=== PATIENT | female | born 1960 | race Caucasian/White ===

== ENCOUNTER 2017-04-22 07:53 | Day surgery (SDC) | payer BC ==
[~2017-04-22 07:53] MED LIST: Famotidine IV* 10 MG/ML 2 ML (20 mg) IV ONE; Metoclopramide TAB* 10 MG PO ONE
[2017-04-22] MEDS ORDERED: Famotidine IV* 10 MG/ML 2 ML (20 mg) ONE (08:07)
[2017-04-22] MEDS ORDERED: Buffered Lidocaine 0.9% SYRIN* 5 ML/SYR SYRINGE ONE (08:08)
[2017-04-22] MEDS ORDERED: cefTRIAXone(*) 2 GM ADDV.VIAL IVPB ONE (08:08)
[2017-04-22] MEDS ORDERED: Metoclopramide TAB* 10 MG ONE (08:08)
[2017-04-22] MEDS ORDERED: Dexamethasone IV* 4 MG/ML 1 ML (4 MG) ONE (08:44)
[2017-04-22] MEDS ORDERED: Ketorolac INJ* 30 MG/ML 1 ML VIAL ONE (08:44)
[2017-04-22] MEDS ORDERED: Ondansetron INJ* 2 MG/ML VIAL ONE (08:44)
[2017-04-22] MEDS ORDERED: Lidocaine 2% PF * 5 ML VIAL ONE (08:44)
[2017-04-22] MEDS ORDERED: Propofol* 10 MG/ML 20 ML BTL IV PUSH ONE (08:44)
[2017-04-22] MEDS ORDERED: fentaNYL* 50 MCG/ML 2 ML VIAL (100 MCG VIAL) ONE ×2 (08:44→10:41)
[2017-04-22] MEDS ORDERED: KETAMINE HCL* 50 MG/ML 10 ML VIAL ONE (08:45)
[2017-04-22] MEDS ORDERED: Midazolam* 1 MG/ML 5 ML VIAL (5 MG) ONE (08:45)
[2017-04-22] MEDS ORDERED: Iohexol 180 (CONTRAST) 10 ML SDV IV ONE (09:02)
[2017-04-22] MEDS ORDERED: Phenylephrine INJ* 10 MG/ML 1 ML VIAL (10 MG) ONE (09:44)
[2017-04-22] MEDS ORDERED: oxyCODONE/Acetamin 5/325 MG* TAB PO PRN (10:01)
[2017-04-22] MEDS ORDERED: Ondansetron INJ* 2 MG/ML VIAL IV PRN (10:01)
[2017-04-22] MEDS ORDERED: fentaNYL* 50 MCG/ML 2 ML VIAL (100 MCG VIAL) IV PRN (10:01)
--- NOTE | 2017-04-22 11:40 | RAD ---
INDICATION: Left ureteral stent placement COMPARISONS: April 07, 2017 TECHNIQUE: Fluoroscopy was provided for a retrograde pyelogram and stent placement. Total fluoroscopy time is: 18 seconds FINDINGS: Contrast is noted within the dilated left renal collecting system. A ureteral stent is noted. IMPRESSION: FLUOROSCOPY WAS PROVIDED FOR A RETROGRADE PYELOGRAM AND STENT PLACEMENT CPT II Codes: 6045F
[2017-04-22] MEDS ORDERED: Solifenacin(NF) 5 MG TAB PO ONE (12:00)
[2017-04-22] MEDS ORDERED: Solifenacin(NF) 10 MG TAB PO ONE (12:00)
[2017-04-22] MEDS ORDERED: Furosemide IV* 10 MG/ML 2 ML VIAL (20 MG) ONE (12:16)
[2017-04-22 13:10] VITALS: BP 169/77
--- NOTE | 2017-04-22 16:29 | OP ---
CC: Dr. Ashley Sainz; Linda Schultz MD; Luke Randhawa MD * DATE OF OPERATION: 04/22/17 - [facility] DATE OF : 56 SURGEON: Luke Randhawa MD. ANESTHESIOLOGIST: Dr. Hendricks. ANESTHESIA: General. PRE-OP DIAGNOSES: 1. Left hydronephrosis. 2. Calculus, left ureter. POST-OP DIAGNOSES: 1. Left hydronephrosis. 2. Calculus, left ureter. OPERATIVE PROCEDURE: 1. Cystoscopy, left stent removal, left retrograde pyelogram, left ureteroscopy , laser lithotripsy and removal of calculus fragments. 2. Left pyeloscopy. 3. Left stent insertion. COMPLICATIONS: None. STENT USED: An 8.5-Tanzanian 28 cm silicone stent, left ureter. POSTOPERATIVE CONDITION: Stable. OPERATIVE FINDINGS: 1. Left hydronephrosis and proximal hydroureter. 2. Fairly large calculus impacted in left [id number] ureter with extensive surrounding inflammatory response. INDICATIONS: Yissel Calvert is a 56-year-old lady who had been evaluated for a large obstructing calculus in the left ureter. She had previously undergone left ureteroscopy at which time I had noted that the calculus seemed to be somewhat embedded within the wall of the left ureter. This was partially fragmented last time and a left stent was placed. She is now being brought in for a more definitive attempt at breaking up and removing all the stone fragments. DESCRIPTION OF PROCEDURE: After induction of general anesthesia, the patient was placed in dorsal lithotomy position. Sequential compression devices were in place and functioning. Initial cystoscopy revealed a normal-appearing bladder. The left stent was removed. A left retrograde pyelogram revealed left hydronephrosis and proximal hydroureter. A 6-Tanzanian semirigid ureteroscope was introduced and advanced into the distal left ureter several centimeters above the ureterovesical junction. A fairly large calculus was noted to be impacted on the medial aspect of the left ureter at the junction of the [id number] left ureter. There was considerable surrounding inflammatory response. Because the calculus was embedded within the pole of the ureter, I had to be very careful with the laser lithotripsy which was done using a 550 micron Holmium laser. Different parts of the calculus were carefully fragmented with the laser in an effort to avoid any injury to the ureter and this was done successfully. All of the fragments were individually removed using a 3-pronged grasper, and were retrieved into the bladder from where they were later removed and sent for analysis. At the end of the procedure, there was no sizeable remaining calculus fragment and there was no evidence of ureteral perforation, although there was considerable inflammatory response where the calculus had been embedded. The ureteroscope was carefully advanced into the proximal ureter and then bend into the renal pelvis to make sure there were no sizeable fragments that had migrated proximally and none were seen. An 8.5 Tanzanian 28 cm silicone stent was introduced and positioned under fluoroscopy with good proximal and distal positioning obtained. The patient is certainly at higher risk for ureteral stricture, given the fact that the calculus had been embedded into the ureter and my plan is to leave the stent in for a minimum of 3 weeks and then she will require close followup monitoring after stent removal to monitor for development of any stricture. The patient tolerated the procedure satisfactorily and was transferred back to the recovery area in stable condition. [id number]/CPS #: [id number] AMAURI
== END 2017-04-22 13:25 | disposition home or self-care (01) ==
LOC: OR 07:53
PROVIDERS: ATTEND Urology
DX: N13.2 Hydronephrosis with renal and ureteral calculous obstruction (principal); I10 Essential (primary) hypertension; Z85.3 Personal history of malignant neoplasm of breast; E78.00 Pure hypercholesterolemia, unspecified; Z87.891 Personal history of nicotine dependence
CPT/HCPCS: 74420; 82365; 88300; A9270-GY; C1876; J0696; J1100; J1580; J1885; J1940; J2250; J2405; J2704; J3010